=== PATIENT | female | born 1995 | race Caucasian/White ===

== ENCOUNTER 2017-10-06 17:29 | Emergency (ER) | END 2017-10-06 18:43 | disposition home or self-care (01) ==

== ENCOUNTER 2018-11-11 05:24 | Emergency (ER) | payer BC ==
[~2018-11-11] VITALS: Ht 152.4 cm; Wt 82.3 kg
[~2018-11-11 05:24] MED LIST: DIAZ5TAB PO; NAPR-985 PO
[2018-11-11 05:25] VITALS: BP 135/79; PULSE 89; RESP 18; Ht 152.4 cm; Wt 82.3 kg
--- NOTE | 2018-11-11 05:41 | ERD ---
ER Documentation Chief Complaint Chief Complaint DIARRHEA/ VOMITING X'S 4 DAYS HPI This is a 23-year-old female presents to emergency department with complaints of diarrhea, vomiting for about 4 days. Stated that she was from [place] a week ago. LMP: Unknown. Denies headache, head injury, loss of consciousness, dizziness, neck pain, neck stiffness, throat pain, difficulty swallowing, difficulty breathing lying flat, shoulder pain, chest pain, back pain, abdominal pain, nausea, vomiting, constipation, diarrhea, urinary symptoms, or possibility being preg nant, loss of bowel and bladder control, trauma, injury, falls, difficulty walking due to pain, numbness or tingling sensation, calf pain, recent travel, recent major surgery in the last 3 weeks, calf pain, recent long travel, recent exposure to any illness, recent antibiotic use in the last 3 months, fever, chills, seizures. Past medical history: Denies. Surgical history: Denies. Social: Denies smoking, use of alcoholic beverages, use of illegal drugs. ROS All systems reviewed and are negative except as per history of present illness. Medications Home Meds Active Scripts Ondansetron (Ondansetron Odt) 4 Mg Tab.rapdis, 4 MG PO Q6H PRN for NAUSEA AND/OR VOMITING, #30 TAB Prov:ELEANOR BAIRD 11/11/18 Ibuprofen* (Motrin*) 800 Mg Tab, 800 MG PO Q6H PRN for PAIN AND OR ELEVATED TEMP, #30 TAB Prov:ELEANOR BAIRD 11/11/18 Metronidazole* (Flagyl*) 500 Mg Tablet, 500 MG PO TID for 7 Days, TAB Prov:ELEANOR BAIRD 11/11/18 Ciprofloxacin Hcl* (Ciprofloxacin Hcl*) 500 Mg Tablet, 500 MG PO BID for 7 Days, TAB Prov:MARVELLEDATYJAGRUTI Youssef 11/11/18 Diazepam* (Valium*) 5 Mg Tablet, 5 MG PO Q8, #10 TAB Prov:KATHARINE,ESTEFANY 10/06/17 Naproxen* (Naprosyn*) 500 Mg Tablet, 500 MG PO BID PRN for PAIN AND/OR INFLAMMATION for 10 Days, #20 TAB Prov:KATHARINE,ESTEFANY 10/06/17 Allergies Allergies: Coded Allergies: No Known Allergy (Unverified , 11/11/18) PMhx/Soc Medical and Surgical Hx: pt denies Medical Hx, pt denies Surgical Hx Hx Alcohol Use: No Hx Substance Use: No Hx Tobacco Use: No Smoking Status: Never smoker Physical Exam Vitals Vital Signs Date Temp Pulse Resp B/P (MAP) Pulse Ox O2 O2 Flow FiO2 Time Delivery Rate 11/11/18 98.0 89 18 135/79 98 05:25 (97) Physical Exam Const: No acute distress Head: Atraumatic Eyes: Normal Conjunctiva ENT: Normal External Ears, Nose and Mouth. Neck: Full range of motion. No meningismus. Resp: Clear to auscultation bilaterally Cardio: Regular rate and rhythm, no murmurs Abd: Soft, non tender, non distended. Normal bowel sounds const: No acute distress Head: Atraumatic Eyes: Normal Conjunctiva. ENT: Normal External Ears, Nose and Mouth. Neck: Full range of motion. No meningismus. Resp: Clear to auscultation bilaterally Cardio: Regular rate and rhythm, no murmurs Abd: Soft, non tender, non distended. Normal bowel sounds. Negative Adkins sign. Negative Luke sign (heel jar test). Negative psoas sign. Negative [place] sign. Able to jump 10 times without developing lower abdominal pain. No CVA tenderness. Ambulatory with steady gait and without pain to abdomen. Skin: No petechiae or rashes. Color appears normal for ethnicity. No skin tenting. No signs of severe dehydration. Back: No midline or flank tenderness Ext: No cyanosis, or edema Neur: Awake and alert. No neurological deficits. Psych: Normal Mood and Affect Skin: No petechiae or rashes Back: No midline or flank tenderness Ext: No cyanosis, or edema Neur: Awake and alert Psych: Normal Mood and Affect Results 24 hrs Laboratory Tests Test 11/11/18 05:50 11/11/18 06:46 Urine Test NEGATIVE Urine Color SIOBHAN Urine Clarity TURBID Urine pH 5.0 Urine Specific [place] 1.024 Urine Ketones NEGATIVE mg/dL Urine Nitrite NEGATIVE mg/dL Urine Bilirubin NEGATIVE mg/dL Urine Urobilinogen NEGATIVE mg/dL Urine Leukocyte Esterase NEGATIVE Jayleen/ul Urine Microscopic RBC 2 /HPF Urine Microscopic WBC 2 /HPF Urine Squamous Epithelial Cells MODERATE /HPF Urine Bacteria FEW /HPF Urine Mucus MODERATE /HPF Urine Hemoglobin 1+ mg/dL Urine Glucose NEGATIVE mg/dL Urine Total Protein NEGATIVE mg/dl Current Medications Medications Dose Sig/No Start Time Status Last (Trade) Ordered Route PRN Stop Time Admin Dose Reason Admin Ondansetron 4 mg ONCE STAT 11/11/18 DC 11/11/18 HCl (Zofran ODT 05:45 11/11/18 05:50 Odt) 05:46 Procedures/MDM Diagnostic tests: Urinalysis: Reviewed. POC urine : Negative. Treatment: Zofran. P.o. challenge. Re-evaluation: No episode of emesis in the emergency department. Negative Adkins sign negative [place] sign (heel jar test). Negative psoas. Negative [place] sign. Able to jump 10 times without developing lower abdominal pain. No CVA tenderness. Stated she feels much better this time and that she is ready to go home. Stated that she is comfortable to go home. Differential diagnosis I have low suspicion for sepsis, pancreatitis, cholecystitis, diverticulitis, bowel obstruction, appendicitis, nephrolithiasis, pyelonephritis, septic stone, obstructing kidney stones, ovarian cyst rupture, ovarian torsion. Final diagnosis: Treated for traveler's diarrhea. Prescription: Cipro. Flagyl. Zofran. Motrin. Follow-up with PCP in the next 24-48 hours. Come back here in the emergency department for any new symptoms or any worsening symptoms. All questions and concerns were answered. Patient and family members verbalized understanding and agreed with plan of care. Hemodynamically stable on discharge. Departure Diagnosis: Primary Impression: Travelers' diarrhea Condition: Stable Additional Instructions: Follow-up with PCP in the next 24-48 hours. Come back here in the emergency department for any new symptoms or any worsening symptoms. ELEANOR BAIRD Nov 11, 2018 05:41
[2018-11-11] MEDS ORDERED: ONDANSETRON (ODT) 4 MG TAB ODT STA (05:45)
[2018-11-11] MEDS ORDERED: CIPR500T4 PO (06:45)
[2018-11-11] MEDS ORDERED: METR500T PO (06:45)
[2018-11-11] MEDS ORDERED: ONDA4TAB14 PO (06:46)
[2018-11-11] MEDS ORDERED: IBUP800T48 PO (06:46)
== END 2018-11-11 08:29 | disposition home or self-care (01) ==
LOC: FTE 05:24
DX: R19.7 Diarrhea, unspecified (principal); R11.10 Vomiting, unspecified
CPT/HCPCS: 81001; 84703; 87086; Z7502; Z7610; 99283